=== PATIENT | male | born 1990 | race Caucasian/White ===

== ENCOUNTER 2018-06-08 19:53 | Emergency (ER) | payer MEDICAID ==
[~2018-06-08] VITALS: Ht 177.8 cm; Wt 68.0 kg
[~2018-06-08 19:53] MED LIST: ACEDIPPM; AZIT250 PO; BISM87SU; Bactrim Ds Tab1 EACH PO; CALCA500CH PO; CEPH500 PO; CLIN300 PO; HYDACE5 PO; IBUP600 PO; K-Dur10 MEQ PO; LORA10ER PO; Mylanta Gas Ma125 MG PO; NAPR500 PO; Naprosyn500 MG PO; ONDA8ODT MM; OTC ANTACIDS; OXYACE5T PO; PANT40 PO; PENVK500 PO; PREVPAC PO; PROM25 PO; Percocet 5-3251 EACH PO; Phenergan25 M1 PO; Prilosec20 MG PO; Protonix40 MG PO; RANI150; RXONDA4ODT MM; TRAM50 PO; Ultram50 MG PO; Veetids 500500 MG PO; Zofran Odt4 MG SL; Zofran Odt8 MG SL
[2018-06-08] MEDS ORDERED: Cleocin HCl300 MG PO (21:25)
== END 2018-06-08 21:36 | disposition home or self-care (01) ==
LOC: ER 19:53
DX: K04.7 Periapical abscess without sinus (principal); K02.9 Dental caries, unspecified
CPT/HCPCS: 41800; 64400; 99283-25